=== PATIENT | male | born 1950 | race Caucasian/White ===

== ENCOUNTER → 2017-01-11 | Outpatient (CLI) | payer MEDICARE, OTHER ==
--- NOTE | 2017-01-11 16:58 | RADRPT ---
PROCEDURE: XR Left hip and pelvis. CLINICAL INDICATION: Left hip pain and pelvic pain. TECHNIQUE: 3 views. Frontal pelvis. Frontal and lateral left hip. COMPARISON: None. FINDINGS: There is no fracture or dislocation. The soft tissues are normal. There are degenerative changes of the right hip with joint space narrowing and osteophytes. There a re degenerative changes of the left hip with joint space narrowing, osteophytes, subarticular sclero sis, and mild deformity. There is no lytic or blastic lesion. The upper pelvis is not included on the images. IMPRESSION: 1. Mild to moderate degenerative changes of the right hip. 2. 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 RPTAT: QQ .Andriy Grewal MD, MD Date Time Electronically viewed and signed by .Andriy Grewal MD, on 01/11/2017 16:58 .R/
== END | disposition home or self-care (01) ==
LOC: HKI 14:31
PROVIDERS: ATTEND Orthopaedic Surgery
DX: M25.552 Pain in left hip (principal); M16.12 Unilateral primary osteoarthritis, left hip
CPT/HCPCS: 73502; G0463